=== PATIENT | male | born 1960 | race Caucasian/White ===

== ENCOUNTER 2020-08-14 06:51 | Emergency (ER) | payer OTHER ==
[~2020-08-14] VITALS: Ht 170.2 cm; Wt 77.1 kg
[~2020-08-14 06:51] MED LIST: ASPIRIN EC81 M1 PO; KEFLEX500 MG PO
[2020-08-14] MEDS ORDERED: PRAVACHOL40 MG PO (07:04)
[2020-08-14] MEDS ORDERED: METFORMIN HCL500 M3 PO (07:04)
[2020-08-14] MEDS ORDERED: JARDIANCE10 MG PO (07:04)
[2020-08-14] MEDS ORDERED: LISINOPRIL10 MG PO (07:05)
[2020-08-14 08:56] LABS: ABSOLUTE NEUTROPHILS 11.5 thou/uL (1.4-8.2); BASOPHILS 0.1 % (0.0-2.0); EOSINOPHILS 0.1 % (0.0-3.0); HEMOGLOBIN 13.8 gm/dL (14.0-18.0); LYMPHOCYTES 6.4 % (24.0-44.0); MCH 28.8 pg (26.0-34.0); MCHC 33.6 g/dL (28.0-37.0); MCV 85.7 fL (80.0-100.0); MONOCYTES 9.2 % (1.0-8.0); PLATELET COUNT 225 thou/uL (150-400); POLYS 84.2 % (36.0-66.0); RBC 4.79 mil/uL (4.50-6.00); RDW 12.9 % (10.5-14.5); WBC 13.7 thou/uL (4.0-11.0)
[2020-08-14 09:05] LABS: CALCIUM 8.6 mg/dL (8.5-10.1); CREATININE 1.1 mg/dL (0.7-1.3); POTASSIUM 3.8 mmol/L (3.5-5.1)
[2020-08-14] MEDS ORDERED: DOXYCYCLINE 10100 MG PO (10:02)
[2020-08-14] MEDS ORDERED: NORCO 10-325 T1 EACH PO (10:02)
[2020-08-14 11:18] VITALS: BP 128/80
== END 2020-08-14 11:18 | disposition home or self-care (01) ==
LOC: ER 06:51
PROVIDERS: Emergency Medicine
DX: L02.215 Cutaneous abscess of perineum (principal); E11.9 Type 2 diabetes mellitus without complications; E78.5 Hyperlipidemia, unspecified; Z79.82 Long term (current) use of aspirin; Z79.899 Other long term (current) drug therapy

== ENCOUNTER 2020-08-15 16:52 | Emergency (ER) | payer OTHER ==
[~2020-08-15] VITALS: Ht 170.2 cm; Wt 77.1 kg
[~2020-08-15 16:52] MED LIST changes: +DOXYCYCLINE 10100 MG PO; +JARDIANCE10 MG PO; +LISINOPRIL10 MG PO; +METFORMIN HCL500 M3 PO; +NORCO 10-325 T1 EACH PO; +PRAVACHOL40 MG PO
[2020-08-15 18:09] LABS: ABSOLUTE NEUTROPHILS 9.6 thou/uL (1.4-8.2); BASOPHILS 0.4 % (0.0-2.0); EOSINOPHILS 0.1 % (0.0-3.0); HEMATOCRIT 39.6 % (42.0-52.0); HEMOGLOBIN 13.2 gm/dL (14.0-18.0); LYMPHOCYTES 7.4 % (24.0-44.0); MCH 28.6 pg (26.0-34.0); MCHC 33.4 g/dL (28.0-37.0); MCV 85.7 fL (80.0-100.0); MONOCYTES 6.8 % (1.0-8.0); PLATELET COUNT 265 thou/uL (150-400); POLYS 85.3 % (36.0-66.0); RBC 4.62 mil/uL (4.50-6.00); WBC 11.3 thou/uL (4.0-11.0)
[2020-08-15 18:13] LABS: CALCIUM 8.3 mg/dL (8.5-10.1); POTASSIUM 4.8 mmol/L (3.5-5.1)
[2020-08-15 19:01] VITALS: BP 124/77
== END 2020-08-15 19:53 | disposition home or self-care (01) ==
LOC: ER 16:52
PROVIDERS: Emergency Medicine
DX: L02.31 Cutaneous abscess of buttock (principal); E11.9 Type 2 diabetes mellitus without complications

== ENCOUNTER 2020-08-17 21:48 | Emergency (ER) | payer OTHER ==
[~2020-08-17] VITALS: Ht 182.9 cm; Wt 77.1 kg
[2020-08-17 22:16] VITALS: BP 156/95
== END 2020-08-17 22:25 | disposition home or self-care (01) ==
LOC: ER 21:48
DX: L02.31 Cutaneous abscess of buttock (principal); E11.9 Type 2 diabetes mellitus without complications